=== PATIENT | female | born 1945 | race Caucasian/White ===

== ENCOUNTER → 2017-10-23 13:22 | Outpatient (CLI) | payer MEDICARE, OTHER, SELFPAY ==
--- NOTE | 2017-10-23 13:24 | RAD_ITS ---
STUDY: SWALLOWING STUDY REASON FOR EXAM: Female, 72 years old. Dysphagia. TECHNIQUE: The examination was performed with Speech Pathology in attendance. Under fluoroscopic observation, the patient ingested thin barium, thick barium, barium pudding, and barium coated cracker. FLUOROSCOPY TIME: 3:06 minutes/seconds. [id number] fluoroscopic images were obtained. RADIOLOGIST INVOLVEMENT: Radiologist was present and providing direct supervision. COMPARISON: None. FINDINGS: The following was observed during swallowing of the various mixtures of barium: Thin Barium: Transient penetration with ingestion of thin liquids. This improved with the chin tuck maneuver. Barium Pudding: There was no evidence of aspiration or laryngeal penetration. Barium Coated Cracker: There was no evidence of aspiration or laryngeal penetration. RAD/Swallowing Function w/Video IMPRESSION: Transient penetration with ingestion of thin liquids. This improves with the chin tuck maneuver. The swallow study findings were discussed with the patient by the speech pathologist at the conclusion of the examination. Please see speech pathology report for more information and recommendations. Electronically Signed: Ulisses Schwartz MD at 14:04 EDT Tel [phone], Service support ,
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
== END ==
PROVIDERS: Visit Provider Psychiatry & Neurology Neurology
DX: G11.9 Hereditary ataxia, unspecified (principal)
CPT/HCPCS: 74230; 92611; G8996; G8997; G8998

== ENCOUNTER → 2017-11-25 09:40 | Outpatient (CLI) | payer MEDICARE, OTHER, SELFPAY ==
--- NOTE | 2017-11-25 09:41 | RAD_ITS ---
STUDY: X-RAY - ESOPHAGUS (BARIUM SWALLOW) WITH FLUOROSCOPY REASON FOR EXAM: Female, 72 years old. Dysphagia. Choking episodes. TECHNIQUE: 21 view(s) of the esophagus were obtained following swallowing of barium. FLUOROSCOPY TIME (if supplied): (0:22) minutes/seconds COMPARISON: None. FINDINGS: There is no demonstrated esophageal foreign body. There is no demonstrated stricture or mucosal abnormality. There is a small hiatal hernia of the fundus of the stomach. The patient ingested a 12 mm tablet of barium without any difficulty. There is atherosclerotic tortuosity of the aortic arch and descending thoracic aorta. Normal visualized pulmonary parenchyma. There are diffuse degenerative changes of the visualized thoracic spine. RAD/Esophagus Only IMPRESSION: Small hiatal hernia without gastroesophageal reflux. Electronically Signed: Ulisses Schwartz MD at 13:58 EDT Tel [phone], Service support ,
== END ==
PROVIDERS: Visit Provider Internal Medicine Gastroenterology
DX: R13.10 Dysphagia, unspecified (principal)
CPT/HCPCS: 74220

== ENCOUNTER 2018-01-21 11:01 | Outpatient (RCR) | payer MEDICARE, OTHER, SELFPAY ==
--- NOTE | 2018-01-21 11:01 | DT_ITS ---
This patient was seen during an EMR downtime January 18, 2018 - January 25, 2018. This patient may have a combination of paper and electronic documentation or all paper documentation. All documentation is viewable within the e-chart portion of [facility] for each patient visit.
== END 2018-01-21 12:00 | disposition home or self-care (01) ==
LOC: SP 11:01
PROVIDERS: Visit Provider Psychiatry & Neurology Neurology
DX: R13.12 Dysphagia, oropharyngeal phase (principal); G11.9 Hereditary ataxia, unspecified

== ENCOUNTER → 2019-05-11 13:57 | Outpatient (CLI) | payer MEDICARE, OTHER, SELFPAY ==
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
--- NOTE | 2019-05-11 14:05 | RAD_ITS ---
STUDY: SWALLOWING STUDY REASON FOR EXAM: Female, 73 years old. Dysphagia. TECHNIQUE: The examination was performed with Speech Pathology in attendance. Under fluoroscopic observation, the patient ingested thin barium, thick barium, barium pudding, and barium coated cracker. FLUOROSCOPY TIME: 2:03 minutes/seconds. 1756 fluoroscopic images were obtained. RADIOLOGIST INVOLVEMENT: Radiologist was present and providing direct supervision. COMPARISON: Comparison is made with prior examination October 23, 2017. FINDINGS: The following was observed during swallowing of the various mixtures of barium: Thin Barium: Transit penetration with ingestion of thin liquids. This improved with the chin tuck maneuver. Thick Barium: There was no evidence of aspiration or laryngeal penetration. Barium Pudding: There was no evidence of aspiration or laryngeal penetration. Barium Coated Cracker: There was no evidence of aspiration or laryngeal penetration. RAD/Swallowing Function w/Video IMPRESSION: Transit penetration with ingestion of thin liquids which improved with the chin tuck maneuver. The swallow study findings were discussed with the patient by the speech pathologist at the conclusion of the examination. Please see speech pathology report for more information and recommendations. Electronically Signed: Ulisses Schwartz, at 15:19 EDT , Service support ,
== END ==
PROVIDERS: Referring Provider Nurse Practitioner Family; Visit Provider Nurse Practitioner Family
DX: R13.10 Dysphagia, unspecified (principal)
CPT/HCPCS: 74230; 92611